=== PATIENT | male | born 1950 | race Caucasian/White ===

== ENCOUNTER 2025-01-23 23:46 | Emergency (ER) | payer OTHER, SELFPAY ==
--- OUTSIDE RECORDS SUMMARY | 2024-07-24 08:19 | XMS_ITS | Continuity of Care Document ---
Author Organization [facility] Address [id number] [address] [place] [address] Phone Care Team Providers Care Door Technician Name Role Phone Vishal Huff MD Unavailable Unavailable Allergies, Adverse Reactions, Alerts Substance Reaction Status Criticality No Known Allergies Active No Inform ation Medications Medication Instructions Dosage Effective Dates (start - stop) Status Comments HYDROcodone 10 mg-acetaminophen 325 mg tablet take 1 tablet by oral route every 4 - 6 hours as needed for pain 1.00 tablet - Active Percocet 5 mg-325 mg tablet take 1 tablet by oral route every 4 - 6 hours as needed 1.00 tablet - Active methylprednisolone 4 mg tablets in a dose pack TAKE 6 TABLETS ON DAY 1 DIRECTED ON PACKAGE AND DECREASE BY 1 TAB EACH DAY FOR A TOTAL OF 6 DAYS - Active sertraline 100 mg tablet take 1.5 tablet by oral route every day 150 MG - Active ropinirole 2 mg tablet take 1 tablet by oral route 3 times every day 2 MG - Active VITAMIN D3 (unknown strength) Not Available - Active lisinopril 20 mg tablet take 1 tablet by oral route every day 20 MG - Active aripiprazole 10 mg tablet take 1 tablet by oral route every day 10 MG - Active atorvastatin 40 mg tablet take 1 tablet by oral route every day 40 MG - Active trazodone 100 mg tablet take 1 tablet by oral route 2 times every day after meals 100 MG - Active Procedures Procedure Date RECONSTRUCT SHOULDER JOINT POSTOP FOLLOW-UP VISIT RADEX RADHA COMPL MINIMUM 2 VIEWS 025 Ultra Sling PT EVAL LOW COMPLEX 20 MIN THERAPEUTIC EXERCISES MANUAL THERAPY Elec stim other than wound HOT OR COLD PACKS THERAPY RADEX RADHA COMPL MINIMUM 2 VIEWS 025 POSTOP FOLLOW-UP VISIT RADEX RADHA COMPL MINIMUM 2 VIEWS Arm Sling POSTOP FOLLOW-UP VISIT OFFICE/OUTPATIENT VISIT NEW Advance Directives Directive Yes / No Effective Date File Name No Information Encounters Encounter Description Practice Location Reason(s) For Visit Diagnoses Date Provider Providers Copied on Encounter [facility], [address] [address], [place], [address], tel:[phone] [facility] Other displaced fracture of upper end of right humerus, initial encounter for closed fracture Jul- 0- 5 Refugio Vishal. [address], [place], [place], [id number] , [place]. tel: [phone] [facility], [address] [address], [place], [address], [place] tel:[phone] [facility] Status post reverse total replacement of right shoulder - 5 Refugio Vishal. [address], [place], [place], [id number] , [place]. tel: [phone] [facility], [address] [address], [place], [address], [place] tel:[phone] [facility] Closed fracture of proximal end of right humerus with routine healing, unspecified fracture morphology, subsequent encounterStatus post reverse total replacement of right shoulder Jun- 3- 5 Refugio Vishal. [address], [place], [place], [id number] , [place]. tel: [phone] [facility], [address] [facility], [place], [address], [place] tel:[phone] [facility], joint, shoulder, right Feb- 7- 5 Alicia Gonzalez. [address], [place], [place], [id number] . tel: [phone] Referring Provider: Vishal Huff, [address], [place], [address]. [facility], [address] [facility] [address], [place], [place], [facility], tel:[phone] [facility] Closed fracture of proximal end of right humerus with routine healing, unspecified fracture morphology, subsequent encounter 5 Kalani Marcial. [address], [place], [address], [place]. tel: [phone] [facility], [address] [facility] [address], [place], [address], tel:[phone] [facility] Closed fracture of proximal end of right humerus with routine healing, unspecified fracture morphology, subsequent encounter 5 Refugio Rodgers. [address], [place], [place], [id number] , . tel: [phone] OFFICE/OUTPAT IENT VISIT NEW [facility], [address], [place], [address], tel:[phone] [facility] Closed fracture of proximal end of right humerus, unspecified fracture morphology, initial encounterBody mass index [BMI] 25.0-25.9, adult 5 Refugio Rodgers. [address], [place], [place], [id number] , . tel: [phone] Family History Family Member Type Diagnosis Age At Onset No Information Payers Payer name Insurance type Covered alliance party ID Authoriza tion(s) No Information Social History Type Description Quantity Date Captured Comments Alcohol Use Details Unknown Caffeine Use Details Unknown Tobacco Use Status No Information Smoking Status No Information Sex Male Chief Complaint And Reason For Visit No Information Reason For Referral Reason For Referral No Information Plan Of Treatment Date Type Action Status Goal Dietary management education , guidance, and counseling completed Referral Ordered: RADEX RADHA COMPL MINIMUM 2 VIEWS RT PROXIMAL HUMERUS ordered Referral Ordered: CT Upper Extr w/o Contrast RT shoulder Appointment date/timeframe: 07/07/2024 ordered Referral Ordered: RADEX RADHA COMPL MINIMUM 2 VIEWS RT ordered History Of Present Illness Encounter Date Complaint History Of Prese nt Illness No Information Functional Status Date Functional Assessmen t No Information Instructions Date Instruction Additional Infor mation Fall prevention home exercise program handout provided Fall prevention home exercise program handout provided Dietary management e ducation, guidance, and counseling Related to Body mass index [BMI] 25.0-25.9, adult Assessments Type Assessment Date assessment Other displaced frac ture of upper end of right humerus, initial encounter for closed fracture Patient Care Teams Name Effective Dates (start - stop) Status Members No Information
[2025-01-23 23:54] VITALS: BP 146/77; PULSE 76; RESP 18; TEMP 36.4; O2SAT 99; BMI 25.8
--- OUTSIDE RECORDS SUMMARY | 2025-01-24 00:13 | XMS_ITS | Continuity of Care Document ---
Author Organization [facility] ([facility]) Address [address] [place] [address] Insurance Providers Payer Plan Claims Address Claims Phone Policy Number Group Number Relation Employer Guarantor Name Guarantor Guarantor Address Guarantor Phone [employer] [address] [address], [place] [address] tel:[phone] [id number] Self Dianne Ramos [address] [place] [id number] [employer] HMO & PPO [address] [address], [place] [address] tel:[phone] Self Dianne Ramos [address] [place] [id number] Problems Condition ICD9 code ICD10 code SNOMED code Start Date End Date S tatus Results No Results Allergies, adverse reactions, alerts Substance Reaction Date Status Type No allergies have been recorded Non Drug Immunizations Vaccine Route Date Status COVID-19 Vaccine Unassigned Route of Administration Refused Medications Medication Instructions Route Dosage Frequency Start Date Stop Date Indications Status diclofenac sodium 1 % gel (diclofenac sodium) 2 grams, topical, Four Times A Day topical 1.0 6.0 h 2024 Active Dulcolax (bisacodyl) (bisacodyl) 5 mg tablet,delayed release (DR/EC) (Dulcolax (bisacodyl) (bisacodyl)) 2 tabs/10mg, oral, Once A Day - PRN, Give if no results from MOM oral 1.0 1.0 d 2024 Active doxycycline monohydrate 100 mg capsule (doxycycline monohydrate) 1 cap, oral, Twice A Day, through 02/18/2025. TI for doxycycline hyclate oral 1.0 12.0 h 02/18 Active Eucerin (lanolin fahkhus-dt-n.pe t-ceres) - cream (Eucerin (lanolin xqiczgz-fb-i.pe t-ceres)) 1 shanae, topical, Once A Day topical 1.0 1.0 d 2024 Active fentanyl 12 mcg/hr patch 72 hour (fentanyl) 1, transdermal, Once A Day Every 3 Days transderma l 1.0 1.0 d 2024 Active fluoxetine 20 mg capsule (fluoxetine) 1 cap, oral, Once A Day oral 1.0 1.0 d 2024 Active lidocaine 4 % adhesive patch,medicated (lidocaine) 1 patch, topical, Twice A Day, ON in the AM, OFF in the PM. TI for Lidocaine 5% Patch. Apply to right shoulder. topical 1.0 12.0 h 2024 Active Lorazepam Intensol (lorazepam) 2 mg/mL concentrate (Lorazepam Intensol (lorazepam)) 0.25-0.5ml, oral, Every 4 Hours - PRN, Clinical Indication: Anxiety and restlessness oral 1.0 4.0 h 2024 Active morphine concentrate 100 mg/5 mL (20 mg/mL) solution (morphine concentrate) 0.5-1ml, oral, Every 2 Hours - PRN, Clinical Indication: Pain/air hunger oral 1.0 2.0 h 2024 Active prednisolone acetate 1 % drops,suspensio n (prednisolone acetate) 1 drop, left eye, Four Times A Day 1.0 6.0 h 2024 Active risperidone 1 mg tablet (risperidone) 1 tab, oral, Twice A Day - PRN, For behaviors. For 14 days. oral 1.0 12.0 h 02/06 Active risperidone 2 mg tablet (risperidone) 1 tab, oral, At Bedtime oral 1.0 2024 Active risperidone 1 mg tablet (risperidone) 1 tab, oral, Once A Day oral 1.0 1.0 d 2024 Active tamsulosin 0.4 mg capsule (tamsulosin) 1 cap, oral, At Bedtime oral 1.0 2024 Active ropinirole 2 mg tablet (ropinirole) 1 tab, oral, At Bedtime - PRN, for restless leg syndrome oral 1.0 2024 Active trospium 20 mg tablet (trospium) 1 tab, oral, Twice A Day oral 1.0 12.0 h 2024 Active acetaminophen 325 mg tablet (acetaminophen) 2 tabs (650mg), oral, Every 6 Hours - PRN, for pain or fever.Do not exceed 4000mg per 24 hour period from all sources oral 1.0 6.0 h 01/23 Active Tylenol (acetaminophen) 325 mg tablet (Tylenol (acetaminophen) ) 2 tabs/650mg, oral, Every 6 Hours - PRN, as needed for PRN pain/increase d tempMay give rectally if necessary oral 1.0 6.0 h 2024 Active atorvastatin 40 mg tablet (atorvastatin) 1 tab, oral, At Bedtime oral 1.0 01/23 Active cholecalciferol (vitamin D3) 25 mcg (1,000 unit) tablet (cholecalcifero l (vitamin D3)) 1 tab, oral, Once A Day oral 1.0 1.0 d 01/23 Active ferrous sulfate 325 mg (65 mg iron) tablet (ferrous sulfate) 1 tab, oral, Once A Day Every Other Day, dosing per TI. oral 1.0 1.0 d 01/23 Active Vital Signs No vital signs reported Social History No smoking Hx information available Encounters Type CPT Code Date Location Provider Indication s encounter report 01/23/2025 02:49 PM Reena Gomez DO 01 Advance Directives Directive Description Verification Date Supporting Document(s) Resuscitation Other Directive
--- OUTSIDE RECORDS SUMMARY | 2025-01-24 00:13 | XMS_ITS | Continuity of Care Document ---
Author Organization [facility] Address [address] [place] [address] Care Team Providers Care Marina Dry Dock Manager Name Role Phone Dr. Sergio Gomez DO Attending Physician [phone] Medications Medication Frequency Instructions Diagnosis Start Date End Date Last Administered diclofenac sodium 1 % gel Four Times A Day 2 grams, topical, Four Times A Day 01/24/20 25 doxycycline monohydrate 100 mg capsule Twice A Day 1 cap, oral, Twice A Day, through 02/18/2025. TI for doxycycline hyclate 01/24/20 25 025 Dulcolax (bisacodyl) (bisacodyl) 5 mg tablet,delayed release (DR/EC) Once A Day - PRN 2 tabs/10mg, oral, Once A Day - PRN, Give if no results from MOM 01/24/20 25 Eucerin (lanolin olxpedc-ff-d.pet-c eres) - cream Once A Day 1 shanae, topical, Once A Day 01/24/20 25 fentanyl 12 mcg/hr patch 72 hour Once A Day Every 3 Days 1, transdermal, Once A Day Every 3 Days 01/24/20 25 fluoxetine 20 mg capsule Once A Day 1 cap, oral, Once A Day 01/24/20 25 lidocaine 4 % adhesive patch,medicated Twice A Day 1 patch, topical, Twice A Day, ON in the AM, OFF in the PM. TI for Lidocaine 5% Patch. Apply to right shoulder. 01/24/20 25 Lorazepam Intensol (lorazepam) 2 mg/mL concentrate Every 4 Hours - PRN 0.25-0.5ml, oral, Every 4 Hours - PRN, Clinical Indication: Anxiety and restlessness 10/10/20 25 morphine concentrate 100 mg/5 mL (20 mg/mL) solution Every 2 Hours - PRN 0.5-1ml, oral, Every 2 Hours - PRN, Clinical Indication: Pain/air hunger 01/24/20 prednisolone acetate 1 % drops,suspension Four Times A Day 1 drop, left eye, Four Times A Day 01/24/20 risperidone 1 mg tablet Twice A Day - PRN 1 tab, oral, Twice A Day - PRN, For behaviors. For 14 days. 01/24/20 risperidone 1 mg tablet Once A Day 1 tab, oral, Once A Day 01/24/20 risperidone 2 mg tablet At Bedtime 1 tab, oral, At Bedtime 01/24/20 ropinirole 2 mg tablet At Bedtime - PRN 1 tab, oral, At Bedtime - PRN, for restless leg syndrome 01/24/20 tamsulosin 0.4 mg capsule At Bedtime 1 cap, oral, At Bedtime 01/24/20 trospium 20 mg tablet Twice A Day 1 tab, oral, Twice A Day 01/24/20 Tylenol (acetaminophen) 325 mg tablet Every 6 Hours - PRN 2 tabs/650mg, oral, Every 6 Hours - PRN, as needed for PRN pain/increased temp May give rectally if necessary 01/24/20 acetaminophen 325 mg tablet Every 6 Hours - PRN 2 tabs (650mg), oral, Every 6 Hours - PRN, for pain or fever.Do not exceed 4000mg per 24 hour period from all sources 01/24/20 atorvastatin 40 mg tablet At Bedtime 1 tab, oral, At Bedtime 01/24/20 cholecalciferol (vitamin D3) 25 mcg (1,000 unit) tablet Once A Day 1 tab, oral, Once A Day 01/24/20 ferrous sulfate 325 mg (65 mg iron) tablet Once A Day Every Other Day 1 tab, oral, Once A Day Every Other Day, dosing per TI. 01/24/20 Problems No ICD problems have been recorded Current Allergies and Intolerances Category Substance Type Reaction Severity Begin Date Status Drug Allergy No known drug allergies Allergy 01/2025 Active Vital Signs No Vital Signs have been recorded Advance Directives Directive Note Do Not Resuscitate (DNR) [facility]osp[facility] Insurance Providers Payer Policy type Group Name Group number Policy ID Address Ph one Medicare Part A Medicare Part A [id number] Phone: Fax: [place] PD[employer] Like Medicare Part A Phone: Fax: Medicare Part B Medicare Part B [id number] Phone: Fax: Copy of Assisted Living Private Phone: Fax: Private Private Phone: Fax: Patient Liability Private Phone: Fax: Private Copay - Ins/HMO Private Phone: Fax: Immunizations Vaccine Water Quality Analyst Date Status Dose Series Complete COVID-19 Vaccine 01/23/2025 Refused Influenza Vaccine 01/23/2025 Refused Pneumococcal Vaccine 01/23/2025 Refused RSV Vaccine 01/23/2025 Refused Procedures Not available for this record Results Not available for this record Goals Goal Date Will have a BM at least ever y 3 days for 120 days since update/last review AND/OR will not experience any complications r/t to colostomy for 120 days from update/ last review AND/OR Will not experience any GI complications for 120 days since update/last review AND/OR Will remain clean, dry between incontinent episodes thru 120days from update/last review 04/25/2025 Encounters Admission Date Discharge Date Description MRN Visit Count 01/23/2025 14:49 [facility] Admission [id number]
--- NOTE | 2025-01-24 00:28 | XRR_ITS ---
PROCEDURE INFORMATION: Exam: XR Left Shoulder Exam date and time: 01/24/2025 12:49 AM Age: 74 years old Clinical indication: Injury or trauma; Fall; Blunt trauma (contusions or hematomas); Shoulder; Left; Additional info: Fall L shoulder pain TECHNIQUE: Imaging protocol: Radiologic exam of the left shoulder. Views: 2 or more views. COMPARISON: No relevant prior studies available. FINDINGS: Bones/joints: Normal. Soft tissues: Normal. XR/XR shoulder LT min 2V* [id number] IMPRESSION: No acute findings.
--- NOTE | 2025-01-24 00:28 | XRR_ITS ---
PROCEDURE INFORMATION: Exam: XR Left Hip Exam date and time: 01/24/2025 12:54 AM Age: 74 years old Clinical indication: Injury or trauma; Fall; Blunt trauma (contusions or hematomas); Left; Hip; Additional info: Fall left hip pain TECHNIQUE: Imaging protocol: Radiologic exam of the left hip. Views: 2 or 3 views hip with pelvis when performed. COMPARISON: No relevant prior studies available. FINDINGS: Bones/joints: No acute fracture or subluxation. Soft tissues: Unremarkable. Gastrointestinal tract: Large stool burden in the rectal vault. Vasculature: Phleboliths in pelvis. XR/XR hip LT 2-3V wo/w pel* [id number] IMPRESSION: No acute fracture or subluxation.
--- NOTE | 2025-01-24 00:28 | XRR_ITS ---
PROCEDURE INFORMATION: Exam: XR Right Elbow Exam date and time: 01/24/2025 12:42 AM Age: 74 years old Clinical indication: Injury or trauma; Fall; Blunt trauma (contusions or hematomas); Elbow; Right; Additional info: Fall R elbow pain TECHNIQUE: Imaging protocol: Radiologic exam of the right elbow. Views: 3 or more views. COMPARISON: No relevant prior studies available. FINDINGS: Bones/joints: No radiographic evidence of acute fracture. Normal bone mineralization. Possible small elbow joint effusion. Soft tissues: Normal. XR/XR elbow RT min 3V* [id number] IMPRESSION: No radiographic evidence of acute fracture.
[2025-01-24 00:29] VITALS: BP 126/81; PULSE 75; O2SAT 98
[2025-01-24 03:13] VITALS: BP 125/71; PULSE 66; O2SAT 98
[2025-01-24 03:30] VITALS: BP 125/71; PULSE 64; O2SAT 98
--- NOTE | 2025-01-24 04:47 | ED_ITS ---
HPI - Fall General: Chief Complaint: Fall Stated Complaint: fall/Rarm pain,bilater elbows, back pain,head pain Time Seen by Provider: 01/24/25 00:09 History of Present Illness: 74 your old male group home patient. E vidently, he fell yesterday, and continues to complain of mainly left hip and shoulder pain. And some right elbow pain as well. He also complains of some right sided posterior hip pain. He?s somewhat confused on examination, with a history of dementia evidently. No mention of head injury. he does not have a headache. Physical Exam Const: GENERAL APPEARANCE: cooperative and frail appearing HENMT: COMMON NORMALS: normocephalic and atraumatic HEAD & SCALP: normocephalic and atraumatic FACE & SINUS: face symmetric; no ecchymosis Eye: COMMON NORMALS: Equal, round and reactive pupils present and EOMs intact bilaterally PUPIL: Yes Equal, round and reactive pupils present Chest: CHEST: Yes Symmetrical chest wall rise Resp: COMMON NORMALS: normal respiratory effort and clear to auscultation bilaterally AUSCULTATION: clear to auscultation bilaterally Cardio: COMMON NORMALS: regular rate and regular rhythm RATE: regular rate RHYTHM: regular rhythm GI: COMMON NORMALS: Normal to inspection, nondistended, normoactive bowel sounds present PALPATION: No Tenderness to palpation present (GI) Back/Pelvis: THORACIC SPINE/UPPER BACK: No thoracic spinal tenderness LUMBA R SPINE/LOWER BACK: No lumbar spinal tenderness Extremity: NARRATIVE EXTREMITY EXAM: examination left upper extremity reveals contusion over the left lateral posterior shoulder. There?s a small open wound with bleeding control with a bandage. There is some pain with movement of the shoulder. There is no deformity. Pulses and sensation or intact distally. Examination of the right upper extremity reveals contusion at the right elbow. Range of motion is somewhat painful. No deformity. Pulses and sensation are intact distally. Examination of the bilateral lower extremities reveal essentially negative log role testing bilaterally. There?s no deformity. Some mild pain with hip movement bilaterally. sensation is intact distal. Neuro: DARSHANA COMA SCALE: document [facility] findings [place] coma scale eye opening: Spontaneous Darshana coma scale verbal response: Confused Darshana coma scale motor response: Obey commands Darshana coma scale total score: 14 COMMON NORMALS: no focal motor deficits Course Vital Signs: Vital signs: Vital Signs Temperature 97.6 F 01/23/25 23:54 Pulse Rate 64 01/24/25 03:30 Respiratory Rate 18 01/23/25 23:54 Blood Pressure 125/71 01/24/25 03:30 Pulse Oximetry 98 01/24/25 03:30 MDM - Fall Medical Decision Making The patient has remain stable here. He?s mildly confused, otherwise alert. Vital signs are normal. He has a febrile. X-rays are negative for fracture. He does have significant contusion to his left shoulder and right elbow. He?s stable for discharge currently. To return for any new or worsening symptoms. Lab Data Radiology Impressions Elbow X-Ray 01/24/25 00:28 IMPRESSION: No radiographic evidence of acute fracture. Hip/Pelvis X-Ray 01/24/25 00:28 IMPRESSION: No acute fracture or subluxation. Shoulder X-Ray 01/24/25 00:28 IMPRESSION: No acute findings. All radiology interpretation(s) finalized by discharge Discharge Plan Discharge Patient Disposition: Home Clinical Impression: Contusion of hip, left, Contusion of elbow, right Contusion of left shoulder Qualifiers: Encounter type: initial encounter Qualified Code(s): S40.012A - Contusion of left shoulder, initial encounter Condition: Stable Discharge Orders: Discharge ED (Routine); Ordered 01/24/25 Ordered By: Akil Rucker Referrals: Sergio Gomez DO [Primary Care Provider, Internal Medicine] - 1-3 days Patient Instructions: Opioid Safety, Pain Management, Patient Portal & Chapo Instructions Activity Restrictions/Additional Instructions: Standard local wound care. Ice for pain and swelling. Return for any problems. Print Language: Mexican Coding Level of Care Code ED Pancake Professional for Stephen Baron
== END 2025-01-24 03:39 | disposition home or self-care (01) ==
PROVIDERS: Emergency Provider Emergency Medicine; PCP Internal Medicine
DX: S70.02XA Contusion of left hip, initial encounter (principal); S50.01XA Contusion of right elbow, initial encounter; S40.012A Contusion of left shoulder, initial encounter; W19.XXXA Unspecified fall, initial encounter
CPT/HCPCS: 73030; 73080; 73502; 99284